=== PATIENT | male | born 1975 | race Caucasian/White ===

== ENCOUNTER 2017-09-08 00:02 | Emergency (ER) | payer BC ==
[2017-09-08] MEDS ORDERED: PRILOSEC 20MG20 MG PO (00:16)
[2017-09-08 02:14] VITALS: BP 116/73
== END 2017-09-08 02:14 | disposition home or self-care (01) ==
LOC: ED 00:02
DX: S83.92XA Sprain of unspecified site of left knee, initial encounter (principal); X50.1XXA Overexertion from prolonged static or awkward postures, initial encounter; Y92.488 Other paved roadways as the place of occurrence of the external cause; F17.210 Nicotine dependence, cigarettes, uncomplicated